=== PATIENT | male | born 1945 | race Caucasian/White ===

== ENCOUNTER 2016-11-10 11:42 | Inpatient (IN) | payer MEDICARE, BC ==
[~2016-11-10] VITALS: Ht 175.3 cm; Wt 83.4 kg
[~2016-11-10 11:42] MED LIST: AMLO10TA2 PO; AMLO5TAB2 PO; CARV12.52 PO; CHLO25TA PO; CYCL5TAB PO; GEMF600T3 PO; GLIP10TA13 PO; GLIP5TAB10 PO; HYDR-3341 PO; LISI-170 PO; LOVA20TA2 PO; METF500T PO; METF500T4 PO; METO50TA82 PO; SPIR25TA PO; VALS1TAB30 PO
[2016-11-10] MEDS ORDERED: SODIUM CHLORIDE FLUSH 10ML SYR IVF ONE ×2 (12:00→13:00)
[2016-11-10] MEDS ORDERED: SILD100T PO (12:04)
[2016-11-10 12:16] LABS: BLOOD UREA NITROGEN 95 mg/dL (7-18)
[2016-11-10] MEDS ORDERED: SODIUM CHLORIDE 0.9% 1,000ML IVBOLUS ONE (13:00)
[2016-11-10] MEDS ORDERED: SODIUM POLYSTYRENE SULFONATE ORAL SUSP ONE (15:51)
[2016-11-10] MEDS ORDERED: ENOXAPARIN 40 MG/0.4 ML SQ SCH (16:00)
[2016-11-10] MEDS ORDERED: hydrALAzine 20 MG/ML, 1ML IVPush PRN (16:00)
[2016-11-10] MEDS ORDERED: SODIUM POLYSTYRENE SULFONATE ORAL SUSP PO ONE (16:00)
[2016-11-10] MEDS ORDERED: ONDANSETRON 2MG/ML, 2ML IVPush PRN (16:00)
[2016-11-10] MEDS ORDERED: ACETAMINOPHEN 325 MG TABLET PO PRN (16:00)
[2016-11-10] MEDS: SODIUM CHLORIDE 0.9% 1,000 ML IV SCH (18:20)
[2016-11-10 20:31] VITALS: BP 150/60
[2016-11-10] MEDS: CARVEDILOL 12.5 MG TABLET PO SCH (20:37)
[2016-11-10] MEDS: metFORMIN 500 MG TABLET PO SCH (20:45)
[2016-11-10] MEDS: LISINOPRIL 20 MG TABLET PO SCH (20:45)
[2016-11-10] MEDS: GEMFIBROZIL 600 MG TABLET PO SCH (20:45)
[2016-11-10] MEDS ORDERED: LOVASTATIN 40 MG TABLET PO SCH (21:00)
[2016-11-11 02:02] VITALS: BP 144/51
[2016-11-11] MEDS: SODIUM CHLORIDE 0.9% 1,000 ML IV SCH (03:27)
[2016-11-11] MEDS: CARVEDILOL 12.5 MG TABLET PO SCH (04:28)
[2016-11-11] MEDS ORDERED: ASPIRIN 325 MG TABLET EC PO SCH (06:00)
[2016-11-11 06:09] LABS: BLOOD UREA NITROGEN 67 mg/dL (7-18)
[2016-11-11 07:30] VITALS: BP 137/69
[2016-11-11] MEDS ORDERED: AMLODIPINE 5 MG TABLET PO SCH (09:00)
[2016-11-11] MEDS ORDERED: CHLORTHALIDONE 25 MG TABLET PO SCH (09:00)
[2016-11-11 10:13] VITALS: BP 150/66
[2016-11-11] MEDS: metFORMIN 500 MG TABLET PO SCH (10:14)
[2016-11-11] MEDS: LISINOPRIL 20 MG TABLET PO SCH (10:15)
[2016-11-11] MEDS: GEMFIBROZIL 600 MG TABLET PO SCH (10:15)
[2016-11-11] MEDS ORDERED: CLOP75TA PO (12:58)
[2016-11-11] MEDS ORDERED: ASPI-621 PO (12:58)
[2016-11-11] MEDS ORDERED: CARV3.1212 PO (12:59)
[2016-11-11] MEDS ORDERED: GLIP5TAB10 PO (12:59)
[2016-11-11 13:20] VITALS: BP_SYST 165; BP_SYST 168; BP_DIAS 65; BP_DIAS 68
== END 2016-11-11 14:07 | disposition home or self-care (01) | DRG 682 ==
LOC: ED 13:37 → OBSVTOIN 15:54 → EDIP 15:54 → 5SO 17:33
PROVIDERS: ADMIT Internal Medicine; ATTEND Internal Medicine
DX: N17.9 Acute kidney failure, unspecified (principal); G93.41 Metabolic encephalopathy; E87.2 Acidosis; G45.9 Transient cerebral ischemic attack, unspecified; R00.1 Bradycardia, unspecified; B35.1 Tinea unguium; E11.9 Type 2 diabetes mellitus without complications; E78.5 Hyperlipidemia, unspecified; E87.5 Hyperkalemia; G47.33 Obstructive sleep apnea (adult) (pediatric); G89.29 Other chronic pain; H91.90 Unspecified hearing loss, unspecified ear; I10 Essential (primary) hypertension; M72.0 Palmar fascial fibromatosis [Dupuytren]; Z82.49 Family history of ischemic heart disease and other diseases of the circulatory system; Z82.5 Family history of asthma and other chronic lower respiratory diseases; Z83.3 Family history of diabetes mellitus; Z85.820 Personal history of malignant melanoma of skin; Z86.73 Personal history of transient ischemic attack (TIA), and cerebral infarction without residual deficits; Z90.49 Acquired absence of other specified parts of digestive tract; M54.9 Dorsalgia, unspecified; T46.5X5A Adverse effect of other antihypertensive drugs, initial encounter
CPT/HCPCS: 36415; 70450; 80047; 80048; 80061; 82040; 82962; 83036; 83735; 84153; 84443; 85025; 85610; 85730; 93005; 93880; 96360; 96361; J1650; J7030